=== PATIENT | female | born 1985 | race Caucasian/White ===

== ENCOUNTER 2017-11-14 11:43 | Outpatient (CLI) | payer OTHER | END 2017-11-14 11:44 | disposition home or self-care (01) | LOC: LAB.R 11:43 | PROVIDERS: ATTEND Physician Assistant Medical | DX: J02.9 Acute pharyngitis, unspecified (principal) | CPT/HCPCS: 87070 ==

== ENCOUNTER 2019-02-24 13:24 | Outpatient (CLI) | payer MEDICAID ==
[2019-02-24 16:55] VITALS: BP 141/98
--- NOTE | 2019-02-24 16:55 | SLEEP CARE CONSULTATION ---
Information from patient questionnaire entered by Cindi Quiñonez. I have reviewed and concur with the information entered by Cindi Quiñonez. This document represents the service I personally performed and the decisions made by me, Chelle Bazzi MD, [facility]. History of Present Illness Reason for Visit: New patient Chief Complaint: reports: Unrefreshed sleep, Snoring, Observed pauses in breathing, Fatigue Duration of Symptoms: 3 years Usual bedtime: 2300 Time it takes to fall asleep: 60 minutes Snores at night: Yes Observed to quit breathing while asleep: Yes Sleeps alone due to snoring: No Number of times waking at night: 4 Reasons for waking at night: reports: Gasping for air, Bathroom Toss, Turn, or Twitch while sleeping: Yes Recalls having dreams: Yes Usually gets out of bed at: 0700 Feels refreshed in the morning: No Morning headache: Yes Sleepy or fatigued during the day: Yes Ever fallen asleep while driving: No Takes day naps: Yes Dreams during day naps: Yes Prior sleep studies: Yes Year and Where: 2017 [facility] Additional HPI information: I had the pleasure of seeing Ms. Hussein today regarding the possibility of her having a sleep disorder. As you know, she is a 33 year old lady who complains of loud snore, observed apneas, frequent awakenings, unrefreshed sleep, and excessive daytime sleepiness. She had a sleep study in [place] in 2017 that showed obstructive sleep apnea-hypopnea. She moved away before treatment could be prescribed. Subjective Initial Prospect Sleepiness Scale score: 15 Past Medical History Past Medical History: reports: Hypertension, Insulin resistance, Anxiety, Asthma, Depression, Other (PCOS, PTSD, Gastroparesis) Social History The patient is not employed. Patient is Single and lives in [place]. Have you smoked in the past 12 months: No Alcohol use: Yes Alcohol amount and frequency: 1 glass once/week Caffeine use: Yes Caffeine amount and frequency: once/week Family History Family history of sleep disordered breathing: Yes Family Hx Sleep Apnea: Father: Snoring Allergies and Home Medications Drug allergies reviewed: Yes Home medication list reviewed: Yes Review of Systems Weight gain over past 5 years: 70 Weight loss over past 5 years: 30 Cardiovascular: reports: high blood pressure, irregular heart rate or pulse Gastrointestinal: reports: heartburn, nausea, vomitting, diarrhea, abdominal pain Urinary: reports: frequency Neurological: reports: headaches Psychiatric: reports: anxiety, depression, other (PTSD) Ear/Nose/Throat: reports: wisdom teeth removed Endocrine: reports: sluggishness, excessive thirst Musculoskeletal: reports: back pain Immunologic: denies: sneezing, rash, itching, allergies to food or environment, other Physical Exam Vital signs obtained and entered by: Dr. Bazzi Blood Pressure: 141/98 Cuff size: regular Heart Rate: 112 O2 Saturation: 97 Height: 5 ft 2 in Weight: 226 lb Body Mass Index: 41.3 BMI Classification: Obesity Class 3 Neck circumference: 16.6 Mood/affect: normal HEENT: No craniofacial malformation Nostrils: patent to airflow Turbinates: normal Septum: midline Mouth and throat: narrow oropharynx Soft palate: long Hard palate: normal Uvula: normal Uvula visualization: 25% Mallampati Class III Tongue: normal in size Tonsils: small Chin and jaw: normal size and position Neck: normal w/o lymphadenopathy or thyromegaly Heart: regular rate and rhythm Lungs: clear bilaterally Abdomen: soft, non-tender Extremities: no edema or clubbing Neurologic: intact, no focal deficits Impression and Plan IMPRESSION: 1. Obstructive Sleep Apnea-Hypopnea Syndrome, as previously diagnosed. She appears to be symptomatic for loud and irregular snoring, frequent awakenings during the night, nocturnal choking, unrefreshed sleep, cognitive impairment, and daytime hypersomnolence. Narrow oropharynx and obesity are common predisposing factors for obstructive sleep apnea-hypopnea syndrome. Untreated o bstructive sleep apnea can also cause hypertension. Pathophysiology of sleep- disordered breathing was discussed. I recommend proceeding to polysomnography to confirm the diagnosis and to assess severity. However, because her insurance being [facility], a home sleep apnea test (HSAT) will be ordered (the insurance does not generally authorize an in-laboratory polysomnography). Plan: 1. Schedule a home sleep apnea test (HSAT) 2. Avoid long distance driving or when feeling sleepy. 3. Avoid alcohol, sedative and muscle relaxant around bedtime. 4. Attempt to lose weight. 5. Return for a follow up after the test. I spent 100% of this 20 minute visit face to face with the patient with greater than 50% of this was spent time counseling the patient and coordination of care.
== END 2019-02-24 13:25 | disposition home or self-care (01) ==
LOC: SC 13:24
PROVIDERS: ATTEND Internal Medicine Pulmonary Disease
DX: G47.33 Obstructive sleep apnea (adult) (pediatric) (principal)
CPT/HCPCS: 99203; 99212

== ENCOUNTER 2019-02-27 17:12 | Emergency (ER) | payer MEDICAID ==
[2019-02-27 19:48] LABS: BASOPHILS # (AUTO) 0.1 10^3/uL (0.0-0.1); BASOPHILS % (AUTO) 0.6 %; EOSINOPHILS # (AUTO) 0.1 10^3/uL (0.0-0.7); EOSINOPHILS % (AUTO) 0.6 %; HGB - HEMOGLOBIN 14.9 g/dL (12.0-16.0); LYMPHOCYTES # (AUTO) 3.5 10^3/uL (1.5-3.5); LYMPHOCYTES % (AUTO) 22.3 %; MEAN CORPUSCULAR HEMOGLOBIN 28.9 pg (27.0-31.0); MEAN CORPUSCULAR VOLUME 87.6 fL (81.0-99.0); MONOCYTES # (AUTO) 0.6 10^3/uL (0.0-1.0); NEUTROPHILS # (AUTO) 11.2 10^3/uL (1.5-6.6); NEUTROPHILS % (AUTO) 71.9 %; PLT - PLATELET COUNT 435 10^3/uL (130-450); RED BLOOD COUNT 5.15 10^6/uL (4.20-5.40); RED CELL DISTRIBUTION WIDTH 12.1 % (12.0-15.0); WHITE BLOOD COUNT 15.5 x10^3/uL (4.8-10.8)
[2019-02-27 19:59] LABS: ALBUMIN 4.9 g/dL (3.2-5.5); ALBUMIN/GLOBULIN RATIO 1.2 (1.0-2.2); BILIRUBIN,TOTAL 1.2 mg/dL (0.2-1.0); CALCIUM 9.6 mg/dL (8.5-10.3); CREATININE 0.8 mg/dL (0.4-1.0); TOTAL PROTEIN 8.9 g/dL (6.7-8.2)
--- NOTE | 2019-02-27 20:39 | ED Physician Documentation ---
PD HPI NVD - Stated complaint Stated Complaint: NAUSEA - Chief complaint Chief Complaint: Abd Pain - History obtained from History obtained from: Patient - History of Present Illness Timing - onset: How many days ago (3) Timing - details: Gradual onset, Waxing and waning Pain level now: 8 Associated symptoms: Abdominal pain (across upper abdomen). No: Fever Improved by: Other (no ameliorating factors) Worsened by: Eating Similar symptoms before: Diagnosis (gastroparesis, although she says she has not had to go to an ED in the past for these symptoms) Recently seen: Not recently seen - Additonal information Additional information: c/o gradually worsening nausea x 3 days with vomiting and not tolerating PO intake. Today has been unable to tolerate sips of water, medications. She says these symptoms are similar to previous episodes attributed to gastroparesis, although these are more persistent and severe than usual; she has not had to go to an ED in the past for the symptoms. She took zofran at home without adequate relief, and was recently prescribed reglan (5mg PO QHS), but unable to take this last few days, as she was told to take it with meals and she hasn't been mali erating adequate PO Review of Systems Constitutional: denies: Fever, Chills, Sweats Cardiac: reports: Reviewed and negative Respiratory: reports: Reviewed and negative GI: reports: Abdominal Pain, Nausea, Vomiting, Diarrhea. 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 HEENT: None Psych: Depression, Anxiety Musculoskeletal: None Derm: None Other Past Medical History: gastoperisis, PCOS - Past Surgical History Past Surgical History: Yes General: Cholecystectomy - Present Medications Home Medications: Ambulatory Orders Medication Instructions Recorded Confirmed Metoclopramide [Reglan] 10 mg PO Q6H PRN #20 tablet 02/27/19 - Allergies Allergies/Adverse Reactions: Allergies Allergy/AdvReac Type Severity Reaction Status Date / Time No Known Drug Allergies Allergy Verified 02/27/19 17:36 - Social History Does the pt smoke?: No Smoking Status: Never smoker Does the pt drink ETOH?: No Does the pt have substance abuse?: No - Immunizations Immunizations are current?: Yes - POLST Patient has POLST: No PD ED PE NORMAL - Vitals Vital signs reviewed: Yes - General General: Alert and oriented X 3, No acute distress, Well developed/nourished - HEENT HEENT: Other (tacky/pasty mucous membranes) - Neck Neck: Supple, no meningeal sign - Cardiac Cardiac: No murmur - Respiratory Respiratory: No respiratory distress, Clear bilaterally - Abdomen Abdomen: Soft, Non distended, Other (mild tenderness across upper abdomen, worst in epigastrium, without rebound or guarding) - Back Back: No CVA TTP - Derm Derm: Normal color, Warm and dry - Extremities Extremities: No edema PD ED PE EXPANDED - Cardiac Cardiac: Tachy, Regular Rhythm Results - Vitals Vitals: Vital Signs - 24 hr 02/27/19 02/27/19 02/27/19 17:36 20:38 22:11 Temperature 37.1 C Heart Rate 118 H 118 H 91 Respiratory 18 18 16 Rate Blood Pressure 140/98 H 134/97 H 137/87 H O2 Saturation 97 96 98 02/27/19 23:33 Temperature 36.4 C L Heart Rate 80 Respiratory 18 Rate Blood Pressure 140/84 H O2 Saturation 98 Oxygen O2 Source Room air - Labs Labs: Laboratory Tests 02/27/19 02/27/19 02/27/19 19:35 19:35 19:35 WBC 15.5 H RBC 5.15 Hgb 14.9 Hct 45.1 MCV 87.6 MCH 28.9 MCHC 33.0 RDW 12.1 Plt Count 435 MPV 9.0 Neut # (Auto) 11.2 H Lymph # (Auto) 3.5 Brule # (Auto) 0.6 Eos # (Auto) 0.1 Baso # (Auto) 0.1 Absolute Nucleated RBC 0.00 Nucleated RBC % 0.0 Sodium 140 Potassium 3.8 Chloride 101 Carbon Dioxide 24 Anion Gap 15.0 H BUN 8 Creatinine 0.8 Estimated GFR (MDRD) 84 L Glucose 81 Calcium 9.6 Total Bilirubin 1.2 H AST 94 H ALT 143 H Alkaline Phosphatase 92 Total Protein 8.9 H Albumin 4.9 Globulin 4.0 Albumin/Globulin Ratio 1.2 Lipase 33 Serum HCG, Qual NEGATIVE PD MEDICAL DECISION MAKING - ED course Complexity details: reviewed results, re-evaluated patient, considered differential, d/w patient ED course: patient reported improvement after 2 liters NS IV , 10mg Reglan IV, and 8mg Zofran IV. She was able to tolerate PO (ice chips followed by water), and is comfortable with d/c home, return if worse. Departure - Departure Disposition: , Self Care Clinical Impression: Nausea & vomiting Condition: Good Instructions: ED Nausea Vomiting, ED Vomiting Diarrhea Nonspecific Ad Follow-Up: Judith Navarro PA-C [Primary Care Provider] - Prescriptions: Metoclopramide [Reglan] 10 mg PO Q6H PRN #20 tablet PRN Reason: Nausea / Vomiting Discharge Date/Time: 02/27/19 23:38
[2019-02-27] MEDS ORDERED: SODIUM CHLORIDE 0.9% 1,000 ML IV STA ×2 (20:51→21:51)
[2019-02-27] MEDS ORDERED: METOCLOPRAMIDE 10 MG/2 ML VIAL IVP STA (20:52)
[2019-02-27 21:16] LABS: HCG,QUALITATIVE BLOOD NEGATIVE
[2019-02-27] MEDS ORDERED: ONDANSETRON 4 MG/2 ML VIAL IVP STA (21:51)
[2019-02-27 23:35] VITALS: BP 140/84
== END 2019-02-27 23:38 | disposition home or self-care (01) ==
LOC: ED 17:12
DX: R11.2 Nausea with vomiting, unspecified (principal)
CPT/HCPCS: 36415; 80053; 83690; 84703; 85025; 96361; 96374; 96375; 99284; J2765; 81001; 81003; 81025; 87086

== ENCOUNTER 2019-03-04 19:30 | Outpatient (CLI) | payer MEDICAID | END 2019-03-04 23:59 | disposition home or self-care (01) | LOC: SC 19:30 | PROVIDERS: ATTEND Internal Medicine Pulmonary Disease | DX: G47.33 Obstructive sleep apnea (adult) (pediatric) (principal) | CPT/HCPCS: 95806 ==

== ENCOUNTER 2019-03-07 10:48 | Outpatient (CLI) | payer MEDICAID ==
[2019-03-07 17:52] LABS: BASOPHILS # (AUTO) 0.1 10^3/uL (0.0-0.1); BASOPHILS % (AUTO) 1.1 %; EOSINOPHILS # (AUTO) 0.2 10^3/uL (0.0-0.7); EOSINOPHILS % (AUTO) 2.2 %; HGB - HEMOGLOBIN 13.5 g/dL (12.0-16.0); LYMPHOCYTES # (AUTO) 3.1 10^3/uL (1.5-3.5); LYMPHOCYTES % (AUTO) 37.3 %; MEAN CORPUSCULAR HEMOGLOBIN 27.9 pg (27.0-31.0); MEAN CORPUSCULAR HGB CONC 31.4 g/dL (32.0-36.0); MEAN CORPUSCULAR VOLUME 88.8 fL (81.0-99.0); MEAN PLATELET VOLUME 9.5 fL (7.9-10.8); MONOCYTES # (AUTO) 0.4 10^3/uL (0.0-1.0); MONOCYTES % (AUTO) 4.8 %; NEUTROPHILS # (AUTO) 4.5 10^3/uL (1.5-6.6); NEUTROPHILS % (AUTO) 54.1 %; PLT - PLATELET COUNT 396 10^3/uL (130-450); RED BLOOD COUNT 4.84 10^6/uL (4.20-5.40); RED CELL DISTRIBUTION WIDTH 12.6 % (12.0-15.0); WHITE BLOOD COUNT 8.3 x10^3/uL (4.8-10.8)
[2019-03-07 18:20] LABS: ALBUMIN 3.9 g/dL (3.2-5.5); ALBUMIN/GLOBULIN RATIO 1.1 (1.0-2.2); BILIRUBIN,TOTAL 0.8 mg/dL (0.2-1.0); CREATININE 0.8 mg/dL (0.4-1.0); TOTAL PROTEIN 7.4 g/dL (6.7-8.2)
== END 2019-03-07 10:49 | disposition home or self-care (01) ==
LOC: LAB.S 10:48
PROVIDERS: ATTEND Physician Assistant
DX: K31.84 Gastroparesis (principal)
CPT/HCPCS: 36415; 80053; 84443; 85025

== ENCOUNTER 2019-03-11 13:23 | Emergency (ER) | payer MEDICAID ==
[2019-03-11] MEDS ORDERED: SODIUM CHLORIDE 0.9% 1,000 ML IV ONE (14:43)
[2019-03-11] MEDS ORDERED: HALOPERIDOL 5 MG/ML VIAL IVP ONE ×2 (14:44→14:46)
[2019-03-11 14:52] LABS: BASOPHILS # (AUTO) 0.1 10^3/uL (0.0-0.1); BASOPHILS % (AUTO) 0.6 %; EOSINOPHILS # (AUTO) 0.2 10^3/uL (0.0-0.7); EOSINOPHILS % (AUTO) 1.1 %; HGB - HEMOGLOBIN 15.2 g/dL (12.0-16.0); LYMPHOCYTES # (AUTO) 3.3 10^3/uL (1.5-3.5); LYMPHOCYTES % (AUTO) 23.9 %; MEAN CORPUSCULAR HEMOGLOBIN 28.3 pg (27.0-31.0); MEAN CORPUSCULAR HGB CONC 32.2 g/dL (32.0-36.0); MEAN CORPUSCULAR VOLUME 87.7 fL (81.0-99.0); MEAN PLATELET VOLUME 8.6 fL (7.9-10.8); MONOCYTES # (AUTO) 0.7 10^3/uL (0.0-1.0); MONOCYTES % (AUTO) 5.3 %; NEUTROPHILS # (AUTO) 9.3 10^3/uL (1.5-6.6); NEUTROPHILS % (AUTO) 68.6 %; PLT - PLATELET COUNT 413 10^3/uL (130-450); RED BLOOD COUNT 5.38 10^6/uL (4.20-5.40); RED CELL DISTRIBUTION WIDTH 12.1 % (12.0-15.0); WHITE BLOOD COUNT 13.6 x10^3/uL (4.8-10.8)
[2019-03-11 15:14] LABS: ALBUMIN 4.7 g/dL (3.2-5.5); ALBUMIN/GLOBULIN RATIO 1.1 (1.0-2.2); BILIRUBIN,TOTAL 1.3 mg/dL (0.2-1.0); CALCIUM 9.6 mg/dL (8.5-10.3); MAGNESIUM 2.3 mg/dL (1.7-2.8); TOTAL PROTEIN 8.9 g/dL (6.7-8.2)
[2019-03-11] MEDS ORDERED: GI COCKTAIL 120 ML BOTTLE PO SCH (16:00)
[2019-03-11] MEDS ORDERED: MAG HYDROX/AL HYDROX/SIMETH 30 ML UDC PO STA (16:05)
[2019-03-11] MEDS ORDERED: LIDOCAINE VISCOUS 2% 15 ML UDC MM STA (16:06)
[2019-03-11 16:34] LABS: HCG UR QUAL NEGATIVE
--- NOTE | 2019-03-11 16:59 | ED Physician Documentation ---
PD HPI NVD - Stated complaint Stated Complaint: VOMITING - Chief complaint Chief Complaint: Abd Pain - History obtained from History obtained from: Patient, Family - History of Present Illness Timing - onset: Chronic (worse for the past 2 weeks) Timing - duration: Other (years but worse for 2 weeks) Timing - details: Gradual onset Severity Comments: moderate nausea, vomiting and diarrhea which is loose, watery nonbloody Associated symptoms: Abdominal pain. No: Fever, Chest pain, Hematemesis, Melena , Hematochezia, Dizzy, Near syncope / syncope, Loss of appetite, Weight loss, Dysuria, Hematuria Contributing factors: Other (hx of gastroparesis). No: Sick contact Improved by: Other (nothing, not getting better with her regular zofran and reglan) Worsened by: Eating Similar symptoms before: Diagnosis (hx of gastroparesis due to IDDM) Recently seen: Clinic (was seen in GI clinic 1 week ago and her doctor told her to continue her reglan) - Treatment prior to arrival Treatment prior to arrival: reglan and zofran - Additonal information Additional information: States this feels like her regular gastroparesis but a little worse Review of Systems Ten Systems: 10 systems reviewed and negative Constitutional: denies: Fever Nose: reports: Reviewed and negative Throat: reports: Reviewed and negative Cardiac: reports: Reviewed and negative Respiratory: reports: Reviewed and negative GI: reports: Abdominal Pain, Nausea, Vomiting, Diarrhea. 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 HEENT: None Psych: Depression, Anxiety Musculoskeletal: None Derm: None Other Past Medical History: gastroparesis - Past Surgical History Past Surgical History: Yes General: Cholecystectomy - Present Medications Home Medications: Ambulatory Orders Medication Instructions Recorded Confirmed Metoclopramide [Reglan] 10 mg PO Q6H PRN #20 tablet 02/27/19 Promethazine Supp [Phenergan Supp] 25 mg AR Q6HR PRN #20 supp 03/11/19 - Allergies Allergies/Adverse Reactions: Allergies Allergy/AdvReac Type Severity Reaction Status Date / Time No Known Drug Allergies Allergy Verified 03/11/19 13:45 - Social History Does the pt smoke?: No Smoking Status: Never smoker Does the pt drink ETOH?: No Does the pt have substance abuse?: No - Immunizations Immunizations are current?: Yes - POLST Patient has POLST: No PD ED PE NORMAL - Vitals Vital signs reviewed: Yes - General General: Alert and oriented X 3, No acute distress, Well developed/nourished - HEENT HEENT: Atraumatic, Moist mucous membranes - Neck Neck: Supple, no meningeal sign - Cardiac Cardiac: RRR, No murmur, No gallop, No rub - Respiratory Respiratory: No respiratory distress, Clear bilaterally - Abdomen Abdomen: Soft, Non distended, Other (mild epigastric tenderness, no guarding or rebound, no RLQ tenderness, no RUQ tenderness) - Female Female : Deferred - Rectal Rectal: Deferred - Derm Derm: Normal color, Warm and dry, No rash - Extremities Extremities: No deformity - Neuro Neuro: Alert and oriented X 3 Eye Opening: Spontaneous Motor: Obeys Commands Verbal: Oriented GCS Score: 15 - Psych Psych: Normal mood, Normal affect Results - Vitals Vitals: Vital Signs - 24 hr 03/11/19 03/11/19 03/11/19 13:45 14:33 14:54 Temperature 37.0 C Heart Rate 121 H 129 H 116 H Respiratory 16 18 18 Rate Blood Pressure 136/96 H 139/102 H O2 Saturation 98 96 94 03/11/19 03/11/19 15:47 17:21 Temperature 36.8 C Heart Rate 94 97 Respiratory 18 14 Rate Blood Pressure 116/77 131/80 H O2 Saturation 93 99 Oxygen O2 Source Room air - Labs Labs: Laboratory Tests 03/11/19 03/11/19 03/11/19 14:43 14:43 16:18 WBC 13.6 H RBC 5.38 Hgb 15.2 Hct 47.2 H MCV 87.7 MCH 28.3 MCHC 32.2 RDW 12.1 Plt Count 413 MPV 8.6 Neut # (Auto) 9.3 H Lymph # (Auto) 3.3 Alpine # (Auto) 0.7 Eos # (Auto) 0.2 Baso # (Auto) 0.1 Absolute Nucleated RBC 0.00 Nucleated RBC % 0.0 Sodium 137 Potassium 4.1 Chloride 101 Carbon Dioxide 24 Anion Gap 12.0 BUN 11 Creatinine 1.0 Estimated GFR (MDRD) 65 L Glucose 86 Calcium 9.6 Magnesium 2.3 Total Bilirubin 1.3 H AST 44 H ALT 56 Alkaline Phosphatase 77 Total Protein 8.9 H Albumin 4.7 Globulin 4.3 H Albumin/Globulin Ratio 1.1 Lipase 32 Ur Specific Sterling >=1.030 H Urine HCG, Qual NEGATIVE neg , mildly elevated bilirubin, neg lipase and otherwise normal lfts. mildly elevated wbc. PD MEDICAL DECISION MAKING - ED course Complexity details: reviewed old records, reviewed results, re-evaluated patient, considered differential, d/w patient, d/w family ED course: ddx- gastroparesis, colitis, gastroenteritis, pancreatitis, hepatitis, choledocholithiasis, appendicitis, gastritis, PUD. 33 y/o F with hx of gastroparesis here for upper abdominal pain with nausea, vomiting and diarrhea that she states is similar to prior episdoes of gastroparesis. She has some mild epigastric tenderness iwth a mildly elevated wbc, no fever. She has had a prior cholecystectomy thus doubt biliary disease, her labs are not c/w hepatitis or pancreatitis. She may have colitis or gastritis She is overall well appearing, she was given haldol for nausea and vomiting with improvement and now is able to tolerate fluids. She was given a GI cocktail which improved her upper abdominal discomfort. After a liter of fluids her vitals improved, she is less tachycardic. She feels well to go home. Will give AR phenergan in case she cannot tolerate PO meds which she reports has been the issue for her at home this week. But given she is not significantly dehydrated, no Yessica I think this is reasonable. Daiana Oliveira MD Departure - Departure Disposition: Home, Self Care Clinical Impression: Gastroparesis, Nausea vomiting and diarrhea Condition: Stable Record reviewed to determine appropriate education?: Yes Instructions: Gastroparesis Follow-Up: Judith Navarro PA-C [Primary Care Provider] - Within 1 week Prescriptions: Promethazine Supp [Phenergan Supp] 25 mg AR Q6HR PRN #20 supp PRN Reason: Nausea / Vomiting Comments: Your lab results today were normal except for a mildly elevated white blood cell count. You should continue your nausea medicine and can take rectal phenergan if nausea is severe. You can also take Maalox OTC for abdominal pain. Return to the ED if worsening symptoms or fever develop. Discharge Date/Time: 03/11/19 17:57
[2019-03-11 17:21] VITALS: BP 131/80
== END 2019-03-11 17:57 | disposition home or self-care (01) ==
LOC: ED 13:23
DX: E11.43 Type 2 diabetes mellitus with diabetic autonomic (poly)neuropathy (principal); K31.84 Gastroparesis; Z79.4 Long term (current) use of insulin; R11.2 Nausea with vomiting, unspecified; R19.7 Diarrhea, unspecified; R00.0 Tachycardia, unspecified; Z90.49 Acquired absence of other specified parts of digestive tract; I10 Essential (primary) hypertension
CPT/HCPCS: 36415; 80053; 81025; 83690; 83735; 85025; 96360; 99283; 99284; A9270

== ENCOUNTER 2019-03-25 11:17 | Outpatient (CLI) | payer MEDICAID ==
[2019-03-25 12:25] VITALS: BP 110/72
--- NOTE | 2019-03-25 12:25 | SLEEP CARE CONSULTATION ---
Information from patient questionnaire entered by Cindi Quiñonez. I have reviewed and concur with the information entered by Cindi Quiñonez. This document represents the service I personally performed and the decisions made by me, Shirley Maldonado RN, MSN, [employer]. History of Present Illness Initial Elizabeth Sleepiness Scale score: 15 Current Elizabeth Sleepiness Scale score: 13 Additional HPI information: PAM DAVIS returns for follow up of the recently performed polysomnography and informed of findings. I explained the pathophysiology behind obstructive sleep apnea. We then spent quite a bit of time discussing different treatment options. For mild obstructive sleep apnea, surgery and oral appliance are alternatives to nasal CPAP therapy but in moderate or severe cases, nasal CPAP is the most effective and reliable treatment. I reviewed the impact of weight ch anges on sleep apnea and strongly recommended losing weight. After some discussion, the patient opted to go with the nasal CPAP therapy. Nasal autoCPAP set at [id number] will be ordered with rationale explained. A manual titration study will be ordered if unable to find optimal pressure with office adjustments. I explained how CPAP machine works with sample devices [employer] and [id number] and what to expect when using the machine. Using CPAP every night in order to get used to it was emphasized. Patient advised to put CPAP mask on before getting into bed so as not to fall asleep without CPAP. To assist acclimation to CPAP use, it could also be used for a short time during day while reading or watching TV. The patient was instructed to call the CPAP supplier to discuss any mechanical problem that may occur. If the mask given is uncomfortable or is difficult to keep on through the night even with adjustment, contact the CPAP supplier as many will replace with another mask style if notified before 30 days. If snoring or perceives is not getting enough air or too much air from the machine, notify this office. [facility] patient education PAP tips reviewed and given to patient. Patient counseled not drink alcohol less than 4 hours before bedtime as it can increase snoring and apnea. Patient does not drink alcohol. Patient was cautioned about risks of drowsy driving until sleepiness symptoms resolve. Patient denies drowsy driving. [facility]AS patient education on snoring and sleep apnea given and reviewed. Sleep Study - Polysomnography Polysomnography findings: Home sleep study results: SLEEP TIME AND EFFICIENCY: The sleep study recording began at 02:25:01 AM and ended at 10:17:14 AM. Total recording time was 472.2 minutes. The total sleep time was 445.0 minutes. The sleep efficiency was 94.2 percent. The patient spent 0.0 minutes supine, and spent 445.0 minutes non-supine. The patients own estimate of sleep time was 8.00 hours. RESPIRATORY DATA: The AHI in this report is indexed to sleep time based on actigraphy. The AASM defines this as IBIS. The AHI on this type 3 Home Sleep Study may understate the AHI determined on a type 1 or 2 study, since EEG is not monitored resulting in the inability to score non-desaturating hypopneas. Based on 4% Calculation: The AHI4% calculation of 26.0 per hour of recording time was based on a total of 153 scored apneas and 40 scored hypopneas with 4% desaturations. Supine AHI4%: 0.0 per hour. Non-supine AHI4%: 25.9 per hour. Oxygen Summary: Patient's baseline O2 saturation was 97.1 %. The patient spent 4.7 minutes at an oxygen saturation less than 90%, and 0.9 minutes less than 85%. The desaturation index was 20.9 events per hour sleep time. The lowest saturation was 80.3 %. SNORING: The percent of the study time spent snoring was 1.9 %. The Snoring Count was 291 . The Snoring Index was Patient Name: Pam Davis Study Date: 03/04/2019 : 1985 Page 2 of 7 39.2 . PULSE RATE REVIEW: The mean heart rate was 63 beats per minute. The rate ranged from a low of 45 to a high of 91 beats per minute. DIAGNOSIS CODE: Moderate obstructive sleep apnea G47.33 Mild desaturations were noted. Allergies and Home Medications Known drug allergies: No Home medication list reviewed: Yes (see list - takes daily / doses not known ) Allergy and home medication list: proclorperazine metformin bupropion albuterol ondansetron omepraxole control metoclopramide metoprolol Review of Systems Review of systems same as previous: Yes Physical Exam Blood Pressure: 110/72 Cuff size: long Heart Rate: 78 O2 Saturation: 98 Height: 5 ft 2 in Weight: 219 lb Body Mass Index: 40.0 BMI Classification: Obesity Class 3 Impression and Plan 1. Obstructive Sleep Apnea-Hypopnea Syndrome, moderate, with lowest oxygen saturation of 80.3%.Obviously this is the cause of the patients symptoms of unrefreshed sleep, and excessive daytime sleepiness. Positive pressure therapy could benefit her hypertension, insulin resistence, anxiety / depression and PTSD. As mentioned above, the patient will be started on nasal autoCPAP therapy with pressure set at 4-15 cmH2O. A manual titration study will be completed if unable to find optimal treatment pressure with office adjustments. Compliance guidelines also reviewed. A copy of compliance guidelines will be given for reference at check out. * Nasal auto CPAP therapy, pressure at 4-15 cm H2O. * Attempt to lose weight. * Avoid alcohol consumption near bedtime. * The patient is again cautioned about driving until sleepiness completely resolves. * Return one month after CPAP obtained. I will assess response to therapy and compliance at that time. I spent 100% of this 30 minute visit face to face with the patient with greater than 50% of this was spent time counseling the patient and coordination of care.
== END 2019-03-25 11:18 | disposition home or self-care (01) ==
LOC: SC 11:17
PROVIDERS: ATTEND Nurse Practitioner Family
DX: G47.33 Obstructive sleep apnea (adult) (pediatric) (principal)
CPT/HCPCS: 99212; 99214

== ENCOUNTER 2019-05-01 09:18 | Outpatient (CLI) | payer MEDICAID ==
[2019-05-01] MEDS ORDERED: BARIUM SULFATE 148 GM POWDER PO ONE (12:20)
[2019-05-01] MEDS ORDERED: SIMETHICONE/SOD BICARB/CIT AC 1 EACH PACKET PO ONE (12:20)
[2019-05-01] MEDS ORDERED: BARIUM SULFATE 700 MG TABLET PO ONE (12:20)
[2019-05-01] MEDS ORDERED: BARIUM SULFATE 176 GM BOTTLE PO ONE (12:20)
--- NOTE | 2019-05-01 12:26 | XRAY Report ---
Reason: JASVIR OAIN,NAUSEA/VOMITING,GASTROPARESIS Procedure Date: 05/01/2019 Accession Number: [id number] / [id number] Procedure: FL - UGI W/Air CPT Code: Final Report FULL RESULT: EXAM: UPPER GI SERIES EXAM DATE: 05/01/2019 12:18 PM. CLINICAL HISTORY: Abdominal pain, nausea/vomiting, gastroparesis. COMPARISONS: None. TECHNIQUE: Routine double contrast upper gastrointestinal technique. Fluoroscopy Time: 2 minutes 37 seconds. Number of fluoroscopy images: 35. FINDINGS: Swallowing Mechanism: Normal oral phase and swallowing reflex. No episodes of tracheal penetration or aspiration evident. Esophageal Motility: Normal peristaltic stripping wave. Esophageal Mucosa: Normal. No ulcerations or masses. Gastroesophageal Junction: Normal. No hernia or significant reflux demonstrated with or without Valsalva maneuvers. Stomach: Normal gastric mucosal pattern. No ulcers identified. Duodenum: Normal duodenal mucosal pattern. No ulcers or diverticula identified. Other: Mild delay in progression of contrast from stomach to duodenum, compatible with provided history of gastroparesis. IMPRESSION: Mild delay of progression of contrast from stomach to proximal small bowel. No reflux or hernia or other significant anatomic abnormality detected. [facility]
== END 2019-05-01 09:19 | disposition home or self-care (01) ==
LOC: DI 09:18
PROVIDERS: ATTEND Physician Assistant
DX: R10.9 Unspecified abdominal pain (principal); R11.2 Nausea with vomiting, unspecified; K31.84 Gastroparesis
CPT/HCPCS: 74246; A9270

== ENCOUNTER 2019-08-26 15:46 | Outpatient (CLI) | payer MEDICAID ==
--- NOTE | 2019-08-26 13:28 | SLEEP CARE CONSULTATION ---
Information from patient questionnaire entered by Cindi Quiñonez. I have reviewed and concur with the information entered by Cindi Quiñonez. This document represents the service I personally performed and the decisions made by me, Chelle Bazzi MD, [facility]. History of Present Illness Service Date and Time: 08/26/2019 1320 Previous diagnosis: Moderate, Obstructive Sleep Apnea-Hypopnea Syndrome AHI: 26.0 Reason for follow up: first compliance Equipment type: CPAP Equipment obtained from: [facility] HPI additional information: To minimize the risk of COVID-19 exposure, the patient has requested and consented to this video telemedicine visit. The patient also agrees to having her insurance billed. HPI: Ms. Hussein was called today to follow up on the nasal CPAP therapy. She was diagnosed to have moderate obstructive sleep apnea-hypopnea syndrome. The patient wears with a nasal mask. She reports using the device nightly and all through the night. The compliance data show usage in 30 out of the past 30 nights, averaging 9.1 hours a night. The > 4 hour compliance rate for the past 30 days is 100%. She complained of no particular problem with the device such as soreness on the face, dry nose, epistaxis, nasal congestion or headache. She thinks that the pressure 4 15 cmH2O is occasionally too low at the beginning of the night. On the CPAP therapy she notices improvement in her sleep quality, and that she wakes up feeling fresher in the morning and more awake/alert during the day. The [place] Sleepiness Scale score 15. The average residual AHI is 1.1; and average time in large leak per day is 28 seconds. The 90th percentile pressure is 14.1 cmH2O. CPAP Compliance Data - Data Reviewed with Patient Average duration of nightly device use: 9H 4M Compliance rate %: 100 Current pressure setting (cmH2O): 4-15 Humidity settin Heated hose settin Average residual AHI: 1.1 Average large leak: 28S Subjective Initial [place] Sleepiness Scale score: 15 Allergies and Home Medications Drug allergies reviewed: Yes Home medication list reviewed: Yes Review of Systems Review of systems same as previous: Yes Physical Exam Height: 5 ft 2 in Impression and Plan IMPRESSION: 1. Obstructive Sleep Apnea-Hypopnea Syndrome, moderate (AHI was 26.0 by a home sleep apnea test), with the patient doing well on nasal CPAP therapy. She has excellent compliance and significant clinical improvement. The current pressure appears effective but not too comfortable. Her mask fits well. Overall, she is very satisfied with treatment and plans to continue with it long-term. No adjustment is necessary today. PLAN: 1. Set autoCPAP to 8 - 15 cmH2O with ramp set at 6 cmH2O and 10 minutes (done via the modem). 2. Try to lose weight 3. Try other masks and nasal pillows. 4. Return in one year for follow up or earlier if there is any problem with the treatment. Visit Type: Telehealth Video Video Type: Audemat Patient Location: Home Location of Provider: Home Patient agrees and consents to this telehealth visit type: Yes Patient agrees to have their insurance billed: Yes Time Spent with Patient (minutes): 15 Provider Statement: I spent 100% of the Telehealth Video Call with the patient with greater than 50% spent counseling the patient and coordination of care.
== END 2019-08-26 15:47 | disposition home or self-care (01) ==
LOC: SC 15:46
PROVIDERS: ATTEND Internal Medicine Pulmonary Disease
DX: G47.33 Obstructive sleep apnea (adult) (pediatric) (principal)

== ENCOUNTER 2019-11-15 18:25 | Emergency (ER) | payer MEDICAID ==
[2019-11-15] MEDS ORDERED: SODIUM CHLORIDE 0.9% 1,000 ML IV STA (18:36)
[2019-11-15] MEDS ORDERED: ONDANSETRON 4 MG/2 ML VIAL IVP STA (18:46)
--- NOTE | 2019-11-15 18:47 | ED Physician Documentation ---
PD HPI ABD PAIN - Stated complaint Stated Complaint: N/V - Chief complaint Chief Complaint: Abd Pain - History obtained from History obtained from: Patient - Additional information Additional information: 33-year-old woman with history of gastroparesis diagnosed by gastric emptying study although has never had an upper endoscopy. It is unclear why she has gastroparesis, she is not diabetic, she is insulin resistant. She takes multiple medications but does not have a med list with her so we do not know what they are. For the last week her vomiting has been worse than normal and has not been able to keep anything down for the last 3 days. No clear trigger. No fevers. No possibility of . She does not use marijuana frequently. 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 : None HEENT: None Psych: Depression, Anxiety Musculoskeletal: None Derm: None - Past Surgical History Past Surgical History: Yes General: Cholecystectomy - Present Medications Home Medications: Ambulatory Orders Medication Instructions Recorded Confirmed Metoclopramide [Reglan] 10 mg PO Q6H PRN #20 tablet 02/27/19 Promethazine Supp [Phenergan Supp] 25 mg MD Q6HR PRN #20 supp 03/11/19 Metoclopramide [Reglan] 10 mg PO Q6H PRN #20 tablet 11/15/19 Ondansetron Odt [Zofran] 4 mg TL Q6H PRN #10 tablet 11/15/19 Promethazine [Phenergan] 25 mg PO Q6H PRN #10 tab 11/15/19 - Allergies Allergies/Adverse Reactions: Allergies Allergy/AdvReac Type Severity Reaction Status Date / Time No Known Drug Allergies Allergy Verified 11/15/19 18:27 - Social History Does the pt smoke?: No Smoking Status: Never smoker Does the pt drink ETOH?: No Does the pt have substance abuse?: No - Immunizations Immunizations are current?: Yes - POLST Patient has POLST: No PD ED PE NORMAL - Vitals Vital signs reviewed: Yes - General General: Alert and oriented X 3, No acute distress - Abdomen Abdomen: Normal bowel sounds, Soft, Non tender - Neuro Neuro: Alert and oriented X 3, Normal speech Results - Vitals Vitals: Vital Signs - 24 hr 11/15/19 11/15/19 11/15/19 18:28 18:53 20:15 Heart Rate 126 H 105 H 97 Respiratory 18 16 18 Rate Blood Pressure 147/99 H 160/97 H 160/101 H O2 Saturation 96 99 98 11/15/19 21:41 Heart Rate 95 Respiratory 16 Rate Blood Pressure 135/89 H O2 Saturation 98 Oxygen O2 Source Room air - Labs Labs: Laboratory Tests 11/15/19 11/15/19 11/15/19 18:40 18:40 19:55 WBC 13.8 H RBC 5.40 Hgb 15.6 Hct 47.4 H MCV 87.8 MCH 28.9 MCHC 32.9 RDW 13.8 Plt Count 429 MPV 9.3 Neut # (Auto) 8.4 H Lymph # (Auto) 4.3 H [place] # (Auto) 0.6 Eos # (Auto) 0.2 Baso # (Auto) 0.1 Absolute Nucleated RBC 0.00 Nucleated RBC % 0.0 Sodium 137 Potassium 3.7 Chloride 103 Carbon Dioxide 20 L Anion Gap 14.0 H BUN 10 Creatinine 0.9 Estimated GFR (MDRD) 73 L Glucose 191 H Calcium 9.4 Total Bilirubin 1.4 H AST 68 H ALT 52 Alkaline Phosphatase 94 Total Protein 8.8 H Albumin 4.4 Globulin 4.4 H Albumin/Globulin Ratio 1.0 Lipase 29 Urine Color YELLOW Urine Clarity CLEAR Urine pH 7.0 Ur Specific [place] 1.025 Urine Protein 30 H Urine Glucose (UA) NEGATIVE Urine Ketones >=80 H Urine Occult Blood TRACE-INTA Urine Nitrite NEGATIVE Urine Bilirubin NEGATIVE Urine Urobilinogen 0.2 (NORMAL) Ur Leukocyte Esterase NEGATIVE Urine RBC 0-5 Urine WBC 0-3 Ur Squamous Epith Cells FEW Squamous Urine Bacteria Many H Urine Casts 0-2 Hyaline Casts Urine Mucus Few Strands Ur Microscopic Review INDICATED Urine Culture Comments INDICATED Urine HCG, Qual NEGATIVE Urine Opiates Screen NEGATIVE Ur Oxycodone Screen NEGATIVE Urine Methadone Screen NEGATIVE Ur Propoxyphene Screen NEGATIVE Ur Barbiturates Screen NEGATIVE Ur Tricyclics Screen NEGATIVE Ur Phencyclidine Scrn NEGATIVE Ur Amphetamine Screen NEGATIVE U Methamphetamines Scrn NEGATIVE U Benzodiazepines Scrn NEGATIVE Urine Cocaine Screen NEGATIVE U Cannabinoids Screen NEGATIVE PD MEDICAL DECISION MAKING - ED course ED course: 33-year-old woman with history of gastroparesis presents with an apparent exacerbation of same. Benign exam. Feeling better after stepwise antiemetics and IV fluids. Most helpful here was Haldol. Departure - Departure Disposition: 01 Home, Self Care Clinical Impression: Gastroparesis Nausea & vomiting Qualifiers: Vomiting type: unspecified Vomiting Intractability: non-intractable Qualified Code(s): R11.2 - Nausea with vomiting, unspecified Condition: Good Record reviewed to determine appropriate education?: Yes Instructions: ED Nausea Vomiting Prescriptions: Promethazine [Phenergan] 25 mg PO Q6H PRN #10 tab PRN Reason: Nausea / Vomiting Metoclopramide [Reglan] 10 mg PO Q6H PRN #20 tablet PRN Reason: nausea or headache Ondansetron Odt [Zofran] 4 mg TL Q6H PRN #10 tablet PRN Reason: Nausea / Vomiting Comments: Follow-up with your general manager food at [facility], next available appointment, for further evaluation and treatment. Return if worse. Do not drink or drive while taking promethazine. Do not take promethazine within 6 hours of taking metoclopramide.
[2019-11-15 18:49] LABS: BASOPHILS # (AUTO) 0.1 10^3/uL (0.0-0.1); BASOPHILS % (AUTO) 0.8 %; EOSINOPHILS # (AUTO) 0.2 10^3/uL (0.0-0.7); EOSINOPHILS % (AUTO) 1.2 %; HGB - HEMOGLOBIN 15.6 g/dL (12.0-16.0); LYMPHOCYTES # (AUTO) 4.3 10^3/uL (1.5-3.5); MEAN CORPUSCULAR HEMOGLOBIN 28.9 pg (27.0-31.0); MEAN CORPUSCULAR HGB CONC 32.9 g/dL (32.0-36.0); MEAN CORPUSCULAR VOLUME 87.8 fL (81.0-99.0); MEAN PLATELET VOLUME 9.3 fL (7.9-10.8); MONOCYTES # (AUTO) 0.6 10^3/uL (0.0-1.0); MONOCYTES % (AUTO) 4.4 %; NEUTROPHILS # (AUTO) 8.4 10^3/uL (1.5-6.6); NEUTROPHILS % (AUTO) 61.1 %; PLT - PLATELET COUNT 429 10^3/uL (130-450); RED CELL DISTRIBUTION WIDTH 13.8 % (12.0-15.0); WHITE BLOOD COUNT 13.8 x10^3/uL (4.8-10.8)
[2019-11-15 19:00] LABS: ALBUMIN 4.4 g/dL (3.2-5.5); BILIRUBIN,TOTAL 1.4 mg/dL (0.2-1.0); CALCIUM 9.4 mg/dL (8.5-10.3); CREATININE 0.9 mg/dL (0.4-1.0); TOTAL PROTEIN 8.8 g/dL (6.7-8.2)
[2019-11-15] MEDS ORDERED: METOCLOPRAMIDE 10 MG/2 ML VIAL IVP STA (19:33)
[2019-11-15 20:00] LABS: MUDS CUTOFF CONCENTRATIONS CUTOFF CONC BELOW:
[2019-11-15 20:04] LABS: GLUCOSE, URINE (UA) NEGATIVE (NEGATIVE); KETONES,URINE (UA) >=80 mg/dL (NEGATIVE); LEUKOCYTE ESTERASE, URINE NEGATIVE (NEGATIVE); NITRITE,URINE NEGATIVE (NEGATIVE); OCCULT BLOOD,URINE TRACE-INTA (NEGATIVE); PROTEIN,URINE 30 mg/dL (NEGATIVE); UROBILINOGEN,URINE 0.2 (NORMAL) E.U./dL (NORMAL)
[2019-11-15 20:15] LABS: BILIRUBIN,URINE NEGATIVE (NEGATIVE); CLARITY,URINE CLEAR (CLEAR); HCG UR QUAL NEGATIVE; ICTOTEST,URINE NEGATIVE
[2019-11-15 20:21] LABS: BACTERIA,URINE Many /HPF (None Seen); CASTS, URINE 0-2 Hyaline Casts /LPF; MUCUS,URINE Few Strands; RBC,URINE 0-5 /HPF (0-5); SQUAMOUS EPITHELIAL CELL,UR FEW Squamous (<= Few)
[2019-11-15 20:22] LABS: AMPHETAMINE SCREEN,URINE NEGATIVE (NEGATIVE); BENZODIAZEPINES SCREEN, URINE NEGATIVE (NEGATIVE); COCAINE SCREEN URINE NEGATIVE (NEGATIVE); METHADONE SCREEN, URINE NEGATIVE (NEGATIVE); METHAMPHETAMINES SCREEN, URINE NEGATIVE (NEGATIVE); OPIATE SCREEN, URINE NEGATIVE (NEGATIVE); OXYCODONE SCREEN, URINE NEGATIVE (NEGATIVE); PROPOXYPHENE SCREEN, URINE NEGATIVE (NEGATIVE); TRICYCLIC ANTIDEPRESSANT,URINE NEGATIVE (NEGATIVE)
[2019-11-15] MEDS ORDERED: HALOPERIDOL 5 MG/ML VIAL IVP ONE (20:27)
[2019-11-15 21:41] VITALS: BP 135/89
[2019-11-15] MEDS ORDERED: METOCLOPRAMIDE 10 MG TABLET PO STA (21:47)
== END 2019-11-15 22:05 | disposition home or self-care (01) ==
LOC: ED 18:25
DX: K31.84 Gastroparesis (principal); R11.2 Nausea with vomiting, unspecified; E88.81 Metabolic syndrome and other insulin resistance; I10 Essential (primary) hypertension
CPT/HCPCS: 36415; 80053; 80306; 81001; 81025; 83690; 85025; 87086; 96361; 96374; 96375; 99283; A9270; J2765; 81003

== ENCOUNTER 2020-01-06 17:57 | Emergency (ER) | payer MEDICAID ==
[2020-01-06 18:57] LABS: BILIRUBIN,URINE NEGATIVE (NEGATIVE); GLUCOSE, URINE (UA) >=1000 mg/dL (NEGATIVE); KETONES,URINE (UA) 40 mg/dL (NEGATIVE); LEUKOCYTE ESTERASE, URINE NEGATIVE (NEGATIVE); NITRITE,URINE NEGATIVE (NEGATIVE); OCCULT BLOOD,URINE NEGATIVE (NEGATIVE); PROTEIN,URINE NEGATIVE (NEGATIVE); UROBILINOGEN,URINE 0.2 (NORMAL) E.U./dL (NORMAL)
[2020-01-06 19:02] LABS: CLARITY,URINE CLEAR (CLEAR); HCG UR QUAL NEGATIVE
[2020-01-06] MEDS ORDERED: SODIUM CHLORIDE 0.9% 1,000 ML IV STA ×2 (20:07→20:14)
--- NOTE | 2020-01-06 20:13 | ED Physician Documentation ---
History of Present Illness - Stated complaint Stated Complaint: FREQUENT URINATION - Chief complaint Chief Complaint: General - Additonal information Additional information: 34-year-old female presents the emergency department for evaluation of urinary frequency, thirst. She reports that she is prediabetic and insulin resistant and takes 500 of metformin twice daily. She has followed up with her primary care doctor and they asked that she come to the ER for further evaluation of possible DKA. Patient reports that she has been nauseated but no vomiting. no fevers, dysuria, no chest pain, dyspnea. She does have a history of gastroparesis as well as PCOS. Review of Systems Constitutional: reports: Fatigue, Other. denies: Fever, Chills, Myalgias Eyes: denies: Loss of vision, Decreased vision Ears: denies: Loss of hearing, Drainage/discharge Nose: denies: Rhinorrhea / runny nose, Congestion, Epistaxis Throat: denies: Dental pain / toothache, Oral lesions / sores Cardiac: denies: Chest pain / pressure, Palpitations, Pedal edema Respiratory: denies: Dyspnea, Cough GI: reports: Nausea. denies: Abdominal Pain, Abdominal Swelling, Vomiting, Constipation, Diarrhea : reports: Frequency. 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 : None HEENT: None Psych: Depression, Anxiety Musculoskeletal: None Derm: None - Past Surgical History Past Surgical History: Yes General: Cholecystectomy - Present Medications Home Medications: Ambulatory Orders Medication Instructions Recorded Confirmed Metoclopramide [Reglan] 10 mg PO Q6H PRN #20 tablet 02/27/19 Promethazine Supp [Phenergan Supp] 25 mg GA Q6HR PRN #20 supp 03/11/19 Metoclopramide [Reglan] 10 mg PO Q6H PRN #20 tablet 11/15/19 Ondansetron Odt [Zofran] 4 mg TL Q6H PRN #10 tablet 11/15/19 Promethazine [Phenergan] 25 mg PO Q6H PRN #10 tab 11/15/19 Metformin HCl 1,000 mg PO BID #120 tablet 01/06/20 - Allergies Allergies/Adverse Reactions: Allergies Allergy/AdvReac Type Severity Reaction Status Date / Time No Known Drug Allergies Allergy Verified 01/06/20 18:02 - Social History Does the pt smoke?: No Smoking Status: Never smoker Does the pt drink ETOH?: No Does the pt have substance abuse?: No - Immunizations Immunizations are current?: Yes - POLST Patient has POLST: No PD ED PE NORMAL - General General: Alert and oriented X 3, No acute distress - HEENT HEENT: PERRL, EOMI - Neck Neck: Supple, no meningeal sign, No adenopathy - Cardiac Cardiac: RRR, No murmur - Respiratory Respiratory: No respiratory distress - Abdomen Abdomen: Normal bowel sounds, Soft, Non tender - Female Female : Deferred - Back Back: No CVA TTP - Derm Derm: Normal color, Warm and dry - Extremities Extremities: No deformity - Neuro Neuro: Alert and oriented X 3, hard tile setter apprentice 2-12 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 Eye Opening: Spontaneous Motor: Obeys Commands Verbal: Oriented GCS Score: 15 Results - Vitals Vitals: Vital Signs - 24 hr 01/06/20 01/06/20 18:02 21:00 Temperature 36.2 C L 37.1 C Heart Rate 114 H 100 Respiratory 16 16 Rate Blood Pressure 151/105 H 146/70 H O2 Saturation 98 99 Oxygen O2 Source Room air - Labs Labs: Laboratory Tests 01/06/20 01/06/20 01/06/20 18:40 20:10 20:10 WBC 13.2 H RBC 5.05 Hgb 14.4 Hct 43.8 MCV 86.7 MCH 28.5 MCHC 32.9 RDW 12.9 Plt Count 350 MPV 9.2 Neut # (Auto) 8.3 H Lymph # (Auto) 3.5 [place] # (Auto) 0.5 Eos # (Auto) 0.3 Baso # (Auto) 0.1 Absolute Nucleated RBC 0.00 Nucleated RBC % 0.0 VBG pH VBG pCO2 VBG pO2 VBG HCO3 VBG Total CO2 VBG O2 Saturation VBG Base Excess Sodium 133 L Potassium 4.3 Chloride 97 L Carbon Dioxide 23 Anion Gap 13.0 BUN 12 Creatinine 0.7 Estimated GFR (MDRD) 97 Glucose 326 H POC Whole Bld Glucose Calcium 9.2 Total Bilirubin 0.7 AST 37 ALT 42 Alkaline Phosphatase 87 Total Protein 7.7 Albumin 3.8 Globulin 3.9 Albumin/Globulin Ratio 1.0 Lipase 24 Urine Color YELLOW Urine Clarity CLEAR Urine pH 6.0 Ur Specific [place] 1.010 Urine Protein NEGATIVE Urine Glucose (UA) >=1000 H Urine Ketones 40 H Urine Occult Blood NEGATIVE Urine Nitrite NEGATIVE Urine Bilirubin NEGATIVE Urine Urobilinogen 0.2 (NORMAL) Ur Leukocyte Esterase NEGATIVE Ur Microscopic Review NOT INDICATED Urine Culture Comments NOT INDICATED Urine HCG, Qual NEGATIVE Serum Ketones NEGATIVE 01/06/20 01/06/20 20:10 20:23 WBC RBC Hgb Hct MCV MCH MCHC RDW Plt Count MPV Neut # (Auto) Lymph # (Auto) [place] # (Auto) Eos # (Auto) Baso # (Auto) Absolute Nucleated RBC Nucleated RBC % VBG pH 7.353 VBG pCO2 42.6 VBG pO2 27.8 VBG HCO3 23.1 VBG Total CO2 24.5 VBG O2 Saturation 46.0 L VBG Base Excess -2.4 L Sodium Potassium Chloride Carbon Dioxide Anion Gap BUN Creatinine Estimated GFR (MDRD) Glucose POC Whole Bld Glucose 322 H Calcium Total Bilirubin AST ALT Alkaline Phosphatase Total Protein Albumin Globulin Albumin/Globulin Ratio Lipase Urine Color Urine Clarity Urine pH Ur Specific [place] Urine Protein Urine Glucose (UA) Urine Ketones Urine Occult Blood Urine Nitrite Urine Bilirubin Urine Urobilinogen Ur Leukocyte Esterase Ur Microscopic Review Urine Culture Comments Urine HCG, Qual Serum Ketones PD MEDICAL DECISION MAKING - ED course Complexity details: reviewed results, considered differential, d/w patient ED course: 34-year-old female presents to the emergency department with chief complaint of urinary frequency excessive thirst. Known history of insulin resistance but no formal diabetes diagnosis. Her primary care physician sent her to the ER to rule out DKA. In the emergency department her sugar was 322. Serum ketones were negative. She had no gap or acidosis. Urine showed no signs of infection. pt was given 2 liters of IVF here in the ED. It does appear that this patient has transitioned into diabetes. I have advised that she needs very close follow-up with a primary care provider likely to start insulin. I will increase her metformin from 500 mg twice daily to 1000 mg twice daily. Patient is to return to the emergency department for fevers uncontrolled vomiting altered mental status abdominal pain. Departure - Departure Disposition: Home, Self Care Clinical Impression: Diabetes type 2, uncontrolled Qualifiers: Glycemic state: with hyperglycemia Qualified Code(s): E11.65 - Type 2 diabetes mellitus with hyperglycemia Condition: Stable Record reviewed to determine appropriate education?: Yes Instructions: Diabetes Type 2 Oral Meds Follow-Up: Carmella Coyle ARNP [Primary Care Provider] - Prescriptions: Metformin HCl 1,000 mg PO BID #120 tablet Comments: Anne-Marie unfortunately it looks like you have progressed into diabetes. I would like you to increase your metformin to 1000 mg twice a day. It is important that you see your primary care doctor in follow-up this week. You likely need to be started on insulin therapy. Your labs today show that you are not in ketoacidosis. Your urine showed no signs of infection. If you have uncontrolled vomiting, suddenly severe abdominal pain, near fainting or excessive fatigue please return immediately to the ER
[2020-01-06 20:17] LABS: BASOPHILS # (AUTO) 0.1 10^3/uL (0.0-0.1); EOSINOPHILS # (AUTO) 0.3 10^3/uL (0.0-0.7); HGB - HEMOGLOBIN 14.4 g/dL (12.0-16.0); LYMPHOCYTES # (AUTO) 3.5 10^3/uL (1.5-3.5); LYMPHOCYTES % (AUTO) 26.6 %; MEAN CORPUSCULAR HEMOGLOBIN 28.5 pg (27.0-31.0); MEAN CORPUSCULAR HGB CONC 32.9 g/dL (32.0-36.0); MEAN CORPUSCULAR VOLUME 86.7 fL (81.0-99.0); MEAN PLATELET VOLUME 9.2 fL (7.9-10.8); MONOCYTES # (AUTO) 0.5 10^3/uL (0.0-1.0); MONOCYTES % (AUTO) 3.6 %; NEUTROPHILS # (AUTO) 8.3 10^3/uL (1.5-6.6); NEUTROPHILS % (AUTO) 63.3 %; PLT - PLATELET COUNT 350 10^3/uL (130-450); RED BLOOD COUNT 5.05 10^6/uL (4.20-5.40); RED CELL DISTRIBUTION WIDTH 12.9 % (12.0-15.0); WHITE BLOOD COUNT 13.2 x10^3/uL (4.8-10.8)
[2020-01-06 20:21] LABS: VBG BASE EXCESS -2.4 mmol/L (-2 - +2); VBG PCO2 42.6 mmHg (41-51); VBG PH 7.353 (7.31-7.41); VBG PO2 27.8 mmHg (25-47); VBG TOTAL CO2 24.5 mmol/L (24-29)
[2020-01-06 20:28] LABS: ALBUMIN 3.8 g/dL (3.2-5.5); ALKALINE PHOSPHATASE 87 IU/L (42-121); ALT ALANINE AMINOTRANSFERASE 42 IU/L (10-60); AST ASPARTATE AMINOTRANSFERASE 37 IU/L (10-42); BILIRUBIN,TOTAL 0.7 mg/dL (0.2-1.0); BUN - BLOOD UREA NITROGEN 12 mg/dL (6-20); CALCIUM 9.2 mg/dL (8.5-10.3); CARBON DIOXIDE - CO2 23 mmol/L (21-32); CHLORIDE 97 mmol/L (101-111); CREATININE 0.7 mg/dL (0.4-1.0); GLUCOSE 326 mg/dL (70-100); LIPASE 24 U/L (22-51); SODIUM 133 mmol/L (135-145); TOTAL PROTEIN 7.7 g/dL (6.7-8.2)
[2020-01-06 20:30] LABS: KETONES, SERUM (ACETEST) NEGATIVE (NEGATIVE)
[2020-01-06 21:04] VITALS: BP 146/70
== END 2020-01-06 22:30 | disposition home or self-care (01) ==
LOC: ED 17:57
DX: E11.65 Type 2 diabetes mellitus with hyperglycemia (principal); Z79.84 Long term (current) use of oral hypoglycemic drugs; E88.81 Metabolic syndrome and other insulin resistance; I10 Essential (primary) hypertension
CPT/HCPCS: 36415; 80053; 81001; 81003; 81025; 82009; 82803; 83690; 85025; 87086; 96360; 99283

== ENCOUNTER 2020-04-06 13:38 | Outpatient (CLI) | payer MEDICAID ==
[2020-04-06 19:56] LABS: BASOPHILS # (AUTO) 0.1 10^3/uL (0.0-0.1); BASOPHILS % (AUTO) 1.1 %; EOSINOPHILS # (AUTO) 0.2 10^3/uL (0.0-0.7); EOSINOPHILS % (AUTO) 1.9 %; HGB - HEMOGLOBIN 12.9 g/dL (12.0-16.0); LYMPHOCYTES # (AUTO) 3.8 10^3/uL (1.5-3.5); LYMPHOCYTES % (AUTO) 35.5 %; MEAN CORPUSCULAR HEMOGLOBIN 27.4 pg (27.0-31.0); MEAN CORPUSCULAR HGB CONC 31.9 g/dL (32.0-36.0); MEAN CORPUSCULAR VOLUME 86.2 fL (81.0-99.0); MEAN PLATELET VOLUME 9.5 fL (7.9-10.8); MONOCYTES # (AUTO) 0.5 10^3/uL (0.0-1.0); MONOCYTES % (AUTO) 4.5 %; NEUTROPHILS % (AUTO) 56.1 %; PLT - PLATELET COUNT 341 10^3/uL (130-450); WHITE BLOOD COUNT 10.8 x10^3/uL (4.8-10.8)
[2020-04-06 20:15] LABS: ALBUMIN 3.9 g/dL (3.2-5.5); ALBUMIN/GLOBULIN RATIO 1.2 (1.0-2.2); ALKALINE PHOSPHATASE 71 IU/L (42-121); ALT ALANINE AMINOTRANSFERASE 42 IU/L (10-60); AST ASPARTATE AMINOTRANSFERASE 36 IU/L (10-42); BILIRUBIN,TOTAL 0.6 mg/dL (0.2-1.0); BUN - BLOOD UREA NITROGEN 8 mg/dL (6-20); CALCIUM 9.3 mg/dL (8.5-10.3); CARBON DIOXIDE - CO2 25 mmol/L (21-32); CHLORIDE 97 mmol/L (101-111); CHOLESTEROL 166 mg/dL; CREATININE 0.6 mg/dL (0.4-1.0); GLUCOSE 238 mg/dL (70-100); HDL CHOLESTEROL 33 mg/dL; LDL CHOLESTEROL,CALCULATED 81 mg/dL; LDL/HDL RATIO 2.5 (<4.4); SODIUM 134 mmol/L (135-145); TOTAL PROTEIN 7.1 g/dL (6.7-8.2); VLDL CHOLESTEROL 52 mg/dL
== END 2020-04-06 13:39 | disposition home or self-care (01) ==
LOC: LAB.S 13:38
PROVIDERS: ATTEND Registered Nurse
DX: I10 Essential (primary) hypertension (principal); E28.2 Polycystic ovarian syndrome; G47.33 Obstructive sleep apnea (adult) (pediatric); E66.8 Other obesity; E11.43 Type 2 diabetes mellitus with diabetic autonomic (poly)neuropathy
CPT/HCPCS: 36415; 80053; 80061; 83036; 83721; 84443; 85025

== ENCOUNTER 2020-05-18 13:59 | Outpatient (CLI) | payer MEDICAID ==
--- NOTE | 2020-05-19 10:08 | Mammography Report ---
BILATERAL DIGITAL SCREENING MAMMOGRAM: 05/18/2020 CLINICAL: Baseline exam. Routine screening. Family history of breast cancer. No prior exams were available for comparison. There are scattered fibroglandular elements in both br easts. No significant masses, calcifications, or other findings are seen in either breast. IMPRESSION: NEGATIVE There is no mammographic evidence of malignancy. Follow-up with ACR/ACS guidelines. This exam was interpreted at Station ID: [id number]. NOTE: For mammograms, a report in lay terms will be sent to the patient. Approximately 15% of breast malignancies will not be visualized mammographically. In the management of a palpable breast mass, a negative mammogram must not discourage biopsy of a clinically suspicious lesion. Electronically Signed By: Bart [email or web address]:05/18/2020 15:13:17 ACR BI-RADS Category 1: Negative 3341F PARENCHYMAL PATTERN: (A) - The breast(s) demonstrate(s) scattered fibroglandular densities. BI-RADS CATEGORY: (1) - 1 RECOMMENDATION: (ADDMAM) - Recommend additional mammographic views. no recall LATERALITY: (B)
== END 2020-05-18 14:00 | disposition home or self-care (01) ==
LOC: DI 13:59
PROVIDERS: ATTEND Registered Nurse
DX: Z12.31 Encounter for screening mammogram for malignant neoplasm of breast (principal); Z80.3 Family history of malignant neoplasm of breast

== ENCOUNTER 2020-10-19 13:02 | Outpatient (CLI) | payer MEDICAID ==
[2020-10-19 20:41] LABS: THYROID STIMULATING HORMONE 1.19 uIU/mL (0.34-5.60)
[2020-10-19 20:43] LABS: FREE T4 (FREE THYROXINE) 0.91 ng/dL (0.58-1.64)
[2020-10-19 20:54] LABS: ESTIMATED AVERAGE GLUCOSE 266 mg/dL (70-100); HEMOGLOBIN A1c% 10.9 % (4.27-6.07)
== END 2020-10-19 13:03 | disposition home or self-care (01) ==
LOC: LAB.S 13:02
PROVIDERS: ATTEND Nurse Practitioner
DX: E11.65 Type 2 diabetes mellitus with hyperglycemia (principal)
CPT/HCPCS: 36415; 81599; 82306; 82530; 83036; 84439; 84443; 84681; 86337; 86341

== ENCOUNTER 2021-01-05 08:00 | Outpatient (CLI) | payer MEDICAID ==
--- NOTE | 2021-01-06 15:50 | XRAY Report ---
PROCEDURE: Foot 3 View LT INDICATIONS: SPRAIN OF LEFT FOOT TECHNIQUE: 3 views of the foot were acquired. COMPARISON: None FINDINGS: Bones: No fractures or dislocations. No suspicious bony lesions. Calcaneal spur is noted. Soft tissues: No tibiotalar joint effusion. Achilles tendon appears normal. IMPRESSION: No visualized acute fracture or dislocation. However, occult injury cannot be excluded. Recommend flor rt interval imaging follow-up in 7-10 days as clinically indicated for additional evaluation. Reviewed by: Basilia David MD on 01/06/2021 3:49 PM PDT Approved by: Basilia David MD on 01/06/2021 3:49 PM PDT Station ID: [id number]
== END 2021-01-05 23:59 | disposition home or self-care (01) ==
LOC: DI.S 08:00
PROVIDERS: ATTEND Emergency Medicine
DX: S93.692A Other sprain of left foot, initial encounter (principal)

== ENCOUNTER 2021-01-31 13:30 | Outpatient (CLI) | payer MEDICAID ==
[2021-01-31 20:17] LABS: ESTIMATED AVERAGE GLUCOSE 163 mg/dL (70-100); HEMOGLOBIN A1c% 7.3 % (4.27-6.07)
== END 2021-01-31 13:31 | disposition home or self-care (01) ==
LOC: LAB.S 13:30
PROVIDERS: ATTEND Nurse Practitioner
DX: E11.65 Type 2 diabetes mellitus with hyperglycemia (principal)
CPT/HCPCS: 36415; 83036

== ENCOUNTER 2021-11-29 08:00 | Outpatient (CLI) | payer MEDICAID | END 2021-11-29 23:59 | disposition home or self-care (01) | LOC: LAB 08:00 | PROVIDERS: ATTEND Nurse Practitioner | DX: L98.9 Disorder of the skin and subcutaneous tissue, unspecified (principal) | CPT/HCPCS: 87070 ==

== ENCOUNTER 2022-01-03 13:41 | Outpatient (CLI) | payer MEDICAID ==
[2022-01-03 21:58] LABS: ESTIMATED AVERAGE GLUCOSE 346 mg/dL (70-100); HEMOGLOBIN A1c% 13.7 % (4.27-6.07)
== END 2022-01-03 13:42 | disposition home or self-care (01) ==
LOC: LAB.S 13:41
PROVIDERS: ATTEND Nurse Practitioner
DX: E11.8 Type 2 diabetes mellitus with unspecified complications (principal); E66.01 Morbid (severe) obesity due to excess calories; R20.3 Hyperesthesia; L98.9 Disorder of the skin and subcutaneous tissue, unspecified
CPT/HCPCS: 36415; 83036; 84443

== ENCOUNTER 2022-06-05 17:22 | Emergency (ER) | payer MEDICAID ==
[2022-06-05] MEDS ORDERED: KETOROLAC 15 MG/ML VIAL IVP STA (17:48)
[2022-06-05] MEDS ORDERED: SODIUM CHLORIDE 0.9% 1,000 ML IV STA (17:48)
[2022-06-05] MEDS ORDERED: CYCLOBENZAPRINE 10 MG TABLET PO STA (17:48)
--- NOTE | 2022-06-05 17:50 | ED Physician Documentation ---
History of Present Illness - Stated complaint Stated Complaint: NECK PX - Chief complaint Chief Complaint: General - History obtained from History obtained from: Patient - Additonal information Additional information: 36-year-old woman with history of sleep apnea, type 1.5 diabetes, PCOS presents with right-sided neck pain that she woke up with yesterday morning. The night prior she had been playing video games with her neck kind of hunched over. Now has had pain since yesterday morning at the base of the inferior part of the sternocleidomastoid. It hurts to rotate her neck. There was no sore throat. No fevers. She went to the walk-in clinic, there was a concern for Lemierres syndrome so was referred here for further evaluation and treatment. Review of Systems Constitutional: denies: Fever, Chills Ears: denies: Loss of hearing, Ear pain Nose: denies: Rhinorrhea / runny nose, Congestion Throat: denies: Sore throat PD PAST MEDICAL HISTORY - Past Medical History Cardiovascular: Hypertension Respiratory: None Neuro: None Endocrine/Autoimmune: Type 2 diabetes, Other GI: GERD, Other MANAGER OB: Other : Incontinence HEENT: None Psych: Depression, Anxiety Musculoskeletal: None Derm: None - Past Surgical History Past Surgical History: Yes General: Cholecystectomy - Present Medications Home Medications: Ambulatory Orders Medication Instructions Recorded Confirmed Blood Sugar Diagnostic [Glucometer 1 each MC BID #120 strip 01/06/20 07/26/21 Strips] Blood-Glucose Meter [Glucometer] 1 each BID #1 each 01/06/20 07/26/21 D3 50 mcg DAILY 10/29/20 07/26/21 Metformin HCl [Fortamet] 500 mg PO BID 10/29/20 07/26/21 Vitamin B Complex/Folic Acid 1 tab PO DAILY 10/29/20 07/26/21 [B-Complex Tablet] Aviane 1 each PO DAILY 11/02/20 07/26/21 Bupropion HCl [Wellbutrin Xl] 300 mg PO DAILY 11/02/20 07/26/21 Insulin Glargine [Lantus Solostar] 17 unit SUBQ BID 11/02/20 07/26/21 Insulin Lispro [Humalog] 1 - 6 units SUBQ QID 11/02/20 07/26/21 Mag Citrate/Potassium Citrate 99 meq PO DAILY 11/02/20 07/26/21 [K-mg Citrate 99-70 mg Capsule] Metoprolol Succinate [Toprol Xl] 25 mg PO DAILY PM 11/02/20 07/26/21 Omeprazole [PriLOSEC] 20 mg PO DAILY PM 11/02/20 07/26/21 Prazosin [Minipress] 3 mg PO QPM 11/02/20 07/26/21 Sertraline HCl 200 mg PO DAILY 11/02/20 07/26/21 Trazodone HCl 300 mg PO DAILY PM 11/02/20 07/26/21 lisinopriL [Lisinopril] 20 mg PO DAILY PM 11/02/20 07/26/21 Cyclobenzaprine [Flexeril] 10 mg PO TID PRN #20 tablet 06/05/22 Metoclopramide [Reglan] 10 mg PO Q6H PRN #20 tablet 06/05/22 - Allergies Allergies/Adverse Reactions: Allergies Allergy/AdvReac Type Severity Reaction Status Date / Time No Known Drug Allergies Allergy Verified 06/05/22 17:37 - Social History Does the pt smoke?: No Smoking Status: Never smoker Does the pt drink ETOH?: No Does the pt have substance abuse?: No - Immunizations Immunizations are current?: Yes - POLST Patient has POLST: No PD ED PE NORMAL - Vitals Vital signs reviewed: Yes - General General: Alert and oriented X 3, No acute distress, Other (Modest resting tachycardia, nontoxic) - HEENT HEENT: Other (Muscular tenderness of the right sternocleidomastoid with difficulty rotation of the neck. Oropharynx is normal. No cervical adenopathy. No anterior neck tenderness.) - Neck Neck: Supple, no meningeal sign, No bony TTP - Cardiac Cardiac: RRR, No murmur - Respiratory Respiratory: No respiratory distress, Clear bilaterally - Abdomen Abdomen: Non tender - Extremities Extremities: Other (Normal and equal bilateral upper extremity department editor strength, thumb extension, and interosseous strength.) - Neuro Neuro: Alert and oriented X 3, No motor deficit, No sensory deficit, Normal speech Eye Opening: Spontaneous Motor: Obeys Commands Verbal: Oriented GCS Score: 15 Results - Vitals Vitals: Vital Signs - 24 hr 06/05/22 06/05/22 06/05/22 17:37 17:41 18:33 Temperature 37.3 C 37.3 C Heart Rate 122 H 122 H 101 H Respiratory 18 18 16 Rate Blood Pressure 154/95 H 154/95 H 137/82 H O2 Saturation 99 99 97 Oxygen O2 Source Room air - Labs Labs: Laboratory Tests 06/05/22 06/05/22 17:56 17:56 WBC 12.8 H RBC 5.13 Hgb 14.1 Hct 42.6 MCV 83.0 MCH 27.5 MCHC 33.1 RDW 13.0 Plt Count 336 MPV 9.3 Neut # (Auto) 8.0 H Lymph # (Auto) 3.9 H Cuming # (Auto) 0.5 Eos # (Auto) 0.2 Baso # (Auto) 0.1 Absolute Nucleated RBC 0.00 Nucleated RBC % 0.0 Sodium 133 L Potassium 3.8 Chloride 98 L Carbon Dioxide 19 L Anion Gap 16.0 H BUN 10 Creatinine 0.6 Estimated GFR (MDRD) 114 Glucose 333 H Calcium 9.7 PD Medical Decision Making - ED course ED course: 36-year-old woman presents with right-sided neck pain that seems like a sternocleidomastoid spasm. She was referred here for evaluation and treatment for potential Lemierre's syndrome albeit this does not really fit her complaint. Work-up here consisted of a right jugular ultrasound ruling out thrombus. Lab work was done with mildly elevated leukocytosis and she has a chemistry panel notable for mild acidosis and a glucose of 333. She received IV fluid here as well as IV insulin. She has been intermittently compliant with self checking blood sugar and insulin administration. I discussed with her that with her poor control of diabetes it was feasible that she was getting dehydration from glycosuria and would benefit from improved glycemic control. She notes that she has a lot of problems with gastroparesis and she has chronic debilitating nausea and that she feels like insulin makes her nausea worse. I sent an email to her primary care nurse practitioner encouraging referrals to the breaker up machine operator and potentially endocrinology as well. Departure - Departure Disposition: 01 Home, Self Care Clinical Impression: Neck muscle spasm Uncontrolled diabetes mellitus Qualifiers: Glycemic state: with hyperglycemia Condition: Good Record reviewed to determine appropriate education?: Yes Instructions: ED Hyperglycemia Diabetic, ED Spasm Neck No Injury Follow-Up: Carmella Coyle ARNP [Primary Care Provider] - Prescriptions: Cyclobenzaprine [Flexeril] 10 mg PO TID PRN #20 tablet PRN Reason: Spasms Metoclopramide [Reglan] 10 mg PO Q6H PRN #20 tablet PRN Reason: nausea or headache Comments: You are seen today for neck muscle spasm which I think is likely related to dehydration from poorly controlled blood sugar. I am prescribing a muscle relaxer and restarting Reglan, but I think the most important thing is improved glycemic control. I sent an email to your primary care nurse practitioner recommending referral to the breaker up machine operator and/or endocrinology do your best to check your blood sugars and take insulin as prescribed. Return for new or worsening symptoms. Follow-up with your primary care physician nurse practitioner next available appointment.
[2022-06-05 18:09] LABS: BASOPHILS # (AUTO) 0.1 10^3/uL (0.0-0.1); BASOPHILS % (AUTO) 0.7 %; EOSINOPHILS # (AUTO) 0.2 10^3/uL (0.0-0.7); EOSINOPHILS % (AUTO) 1.3 %; HCT - HEMATOCRIT 42.6 % (37.0-47.0); HGB - HEMOGLOBIN 14.1 g/dL (12.0-16.0); LYMPHOCYTES # (AUTO) 3.9 10^3/uL (1.5-3.5); LYMPHOCYTES % (AUTO) 30.3 %; MEAN CORPUSCULAR HEMOGLOBIN 27.5 pg (27.0-31.0); MEAN CORPUSCULAR HGB CONC 33.1 g/dL (32.0-36.0); MEAN PLATELET VOLUME 9.3 fL (7.9-10.8); MONOCYTES # (AUTO) 0.5 10^3/uL (0.0-1.0); MONOCYTES % (AUTO) 3.7 %; NEUTROPHILS % (AUTO) 62.8 %; PLT - PLATELET COUNT 336 10^3/uL (130-450); RED BLOOD COUNT 5.13 10^6/uL (4.20-5.40); WHITE BLOOD COUNT 12.8 x10^3/uL (4.8-10.8)
[2022-06-05 18:15] LABS: CALCIUM 9.7 mg/dL (8.5-10.3); CREATININE 0.6 mg/dL (0.4-1.0); POTASSIUM 3.8 mmol/L (3.5-5.0)
[2022-06-05] MEDS ORDERED: INSULIN REGULAR HUMAN 100 UNIT/1 ML 10 ML MDV IVP STA (18:36)
[2022-06-05 18:39] VITALS: BP 137/82
--- NOTE | 2022-06-05 18:42 | Ultrasound Report ---
PROCEDURE: Duplex Venous Limited INDICATIONS: Neck pain, please evaluate for jugular thrombus TECHNIQUE: Real-time imaging, as well as color and pulse Doppler interrogation, were performed of the right jugu lar region COMPARISON: None. FINDINGS: Negative for right jugular venous thrombosis. IMPRESSION: No findings of right jugular venous thrombosis. Note: Concordant preliminary findings given by the plant operations manager upon the completion of the examination to Dr. Cooper. Reviewed by: Casimiro Escobedo MD on 06/05/2022 5:41 PM [facility] Approved by: Casimiro Escobedo MD on 06/05/2022 5:41 PM [facility] Station ID: [id number]
== END 2022-06-05 19:09 | disposition home or self-care (01) ==
LOC: ED 17:22
DX: M62.838 Other muscle spasm (principal); E13.65 Other specified diabetes mellitus with hyperglycemia; I10 Essential (primary) hypertension; Z79.84 Long term (current) use of oral hypoglycemic drugs; Z79.4 Long term (current) use of insulin; Z79.899 Other long term (current) drug therapy
CPT/HCPCS: 36415; 80048; 85025; 93971; 96361; 96374; 99284; A9270; J1815

== ENCOUNTER 2022-06-13 08:00 | Outpatient (CLI) | payer MEDICAID ==
--- NOTE | 2022-06-13 15:38 | XRAY Report ---
PROCEDURE: Ankle 3 View RT INDICATIONS: RIGHT ANKLE SPRAIN TECHNIQUE: 3 views of the ankle were acquired. COMPARISON: None FINDINGS: Bones: No fractures or dislocations. Ankle mortise is normally aligned. No suspicious bony lesions . Soft tissues: No tibiotalar joint effusion. Achilles tendon appears normal. IMPRESSION: No visualized acute fracture or dislocation. However, occult injury cannot be excluded. Recommend short interval imaging follow-up in 7-10 days as clinically indicated for additional evalua tion. Reviewed by: Basilia David MD on 06/13/2022 3:36 PM PST Approved by: Basilia David MD on 06/13/2022 3:36 PM PST Station ID: [id number]
== END 2022-06-13 23:59 | disposition home or self-care (01) ==
LOC: DI.S 08:00
PROVIDERS: ATTEND Physician Assistant Medical
DX: S93.401A Sprain of unspecified ligament of right ankle, initial encounter (principal)

== ENCOUNTER 2023-05-03 13:30 | Outpatient (CLI) | payer MEDICAID ==
--- NOTE | 2023-05-03 18:13 | Ultrasound Report ---
PROCEDURE: Pelvic w/Transvaginal INDICATIONS: PELVIC PAIN TECHNIQUE: Real-time scanning was performed of the pelvic organs, with image documentation. Additional endovagi nal scanning was necessary due to incomplete visualization of the adnexal and endometrial structures by transabdominal scanning. COMPARISON: None. FINDINGS: Uterus: Uterus is anteverted and normal in size at 6.8 x 2.8 x 3.7 cm. The myometrium is homogeneou s. The endometrium measures 5 mm in combined thickness. Ovaries: The right ovary measures 2.7 x 1.3 x 1.6 cm, with a calculated ovarian volume of 3.2 cc. T he left ovary measures 3.5 x 2.0 x 3.2 cm, with a calculated ovarian volume of 12.6 cc. There is a 1. 9 x 1.2 x 2.0 cm left ovarian hemorrhagic cyst. The ovaries have a normal sonographic appearance. Le ss than 12 follicles can be seen in each ovary. No adnexal masses are seen. Other: No pathologic free abdominal or pelvic fluid. IMPRESSION: Pelvis without acute sonographic abnormalities. A 2.0 cm left ovarian hemorrhagic cyst. Consider follow-up pelvic ultrasound in 6-12 weeks to mariettan t stability versus resolution. Reviewed by: Daniel Pope MD on 05/03/2023 6:12 PM PST Approved by: Daniel Pope MD on 05/03/2023 6:12 PM PST Station ID: [id number]
== END 2023-05-03 13:31 | disposition home or self-care (01) ==
LOC: DI 13:30
PROVIDERS: ATTEND Nurse Practitioner
DX: N83.202 Unspecified ovarian cyst, left side (principal)

== ENCOUNTER 2023-05-23 13:04 | Outpatient (CLI) | payer MEDICAID ==
[~2023-05-23 13:04] MED LIST: GADOTERATE MEGLUMINE 10 MMOL/20 ML VIAL ONE
[2023-05-23 13:31] LABS: CREATININE 0.5 mg/dL (0.6-1.3)
--- NOTE | 2023-05-23 16:12 | MRI Report ---
PROCEDURE: PELVIS W/WO INDICATIONS: PELVIC PAIN CONTRAST: clariscan 20ml TECHNIQUE: Coronal ultra fast SE, sagittal breath-hold T2 FSE; axial T1 FSE with and without fat saturation thro ugh the pelvis. Optional long- and short-axis uterine nonbreath-hold T2 FSE through the uterus. Sag ittal or axial dynamic ultra fast GE during administration of contrast. Post-contrast axial or coron al ultra fast GE / 2-D spoiled GE with fat saturation from the iliac crests to the symphysis. Option al diffusion weighted imaging and ADC may be performed. COMPARISON: None. FINDINGS: Image quality: Diagnostic Lower abdomen: No bowel obstruction. No abscess or ascites. Bladder: Unremarkable Reproductive organs: Normal thickness of the endometrium and junctional zone. Unremarkable appearance of the cervix, with prominent stroma that is likely physiologic. The ovaries are seen, with small fo llicles, overall not enlarged. Previous left ovarian complex cystic lesion is not identified. On precontrast T1-weighted images, no evidence of intrinsically T1 hyperintense endometriosis deposit s. Rectum: Unremarkable Vessels and lymph nodes: No pathologic lymph nodes by size criteria. No aneurysmal vessel identified. Pelvic wall: Unremarkable Bones: No acute or suspicious osseous findings. IMPRESSION: Unremarkable appearance of the uterus and ovaries. Previously seen complex left ovary cystic lesion i s not identified, probably a hemorrhagic cyst. No MRI evidence of active deep pelvic endometriosis de posits. Reviewed by: Salbador Gupta MD on 05/23/2023 4:11 PM PST Approved by: Salbador Gupta MD on 05/23/2023 4:11 PM PST Station ID: [id number]
[2023-05-23] MEDS ORDERED: GADOTERATE MEGLUMINE 10 MMOL/20 ML VIAL IVP ONE (17:47)
== END 2023-05-23 13:05 | disposition home or self-care (01) ==
LOC: LAB 13:04
PROVIDERS: ATTEND Nurse Practitioner
DX: R10.2 Pelvic and perineal pain (principal)
CPT/HCPCS: 36415; 72197; 82565; A9575

== ENCOUNTER 2023-07-23 10:54 | Outpatient (CLI) | payer MEDICAID ==
[2023-07-23 14:30] LABS: BASOPHILS # (AUTO) 0.1 10^3/uL (0.0-0.1); EOSINOPHILS # (AUTO) 0.1 10^3/uL (0.0-0.7); EOSINOPHILS % (AUTO) 1.6 %; HCT - HEMATOCRIT 37.7 % (37.0-47.0); HGB - HEMOGLOBIN 11.5 g/dL (12.0-16.0); LYMPHOCYTES # (AUTO) 3.1 10^3/uL (1.5-3.5); LYMPHOCYTES % (AUTO) 38.8 %; MEAN CORPUSCULAR HEMOGLOBIN 23.9 pg (27.0-31.0); MEAN CORPUSCULAR HGB CONC 30.5 g/dL (32.0-36.0); MEAN CORPUSCULAR VOLUME 78.2 fL (81.0-99.0); MEAN PLATELET VOLUME 9.9 fL (7.9-10.8); MONOCYTES # (AUTO) 0.4 10^3/uL (0.0-1.0); MONOCYTES % (AUTO) 5.5 %; NEUTROPHILS # (AUTO) 4.1 10^3/uL (1.5-6.6); NEUTROPHILS % (AUTO) 52.5 %; PLT - PLATELET COUNT 329 10^3/uL (130-450); RED BLOOD COUNT 4.82 10^6/uL (4.20-5.40); RED CELL DISTRIBUTION WIDTH 14.3 % (12.0-15.0); WHITE BLOOD COUNT 7.9 x10^3/uL (4.8-10.8)
[2023-07-23 15:00] LABS: THYROID STIMULATING HORMONE 1.49 uIU/mL (0.34-5.60)
[2023-07-23 15:17] LABS: ALBUMIN 3.7 g/dL (3.2-5.5); ALBUMIN/GLOBULIN RATIO 1.4 (1.0-2.2); ALKALINE PHOSPHATASE 69 IU/L (42-121); ALT ALANINE AMINOTRANSFERASE 51 IU/L (10-60); AST ASPARTATE AMINOTRANSFERASE 49 IU/L (10-42); BILIRUBIN,TOTAL 0.5 mg/dL (0.2-1.0); BUN - BLOOD UREA NITROGEN 9 mg/dL (6-20); CALCIUM 9.2 mg/dL (8.5-10.3); CARBON DIOXIDE - CO2 24 mmol/L (21-32); CHLORIDE 102 mmol/L (101-111); CHOL/HDL RATIO 5.3 (<4.4); CHOLESTEROL 175 mg/dL; CREATININE 0.5 mg/dL (0.6-1.3); GFR - MDRD 140 (>89); GLUCOSE 349 mg/dL (74-104); HDL CHOLESTEROL 33 mg/dL; LDL CHOLESTEROL,CALCULATED 69 mg/dL; LDL/HDL RATIO 2.1 (<4.4); POTASSIUM 4.1 mmol/L (3.5-4.5); SODIUM 134 mmol/L (135-145); TOTAL PROTEIN 6.4 g/dL (6.4-8.9); TRIGLYCERIDES 363 mg/dL (48-352); VLDL CHOLESTEROL 73 mg/dL
== END 2023-07-23 10:55 | disposition home or self-care (01) ==
LOC: LAB.S 10:54
PROVIDERS: ATTEND Registered Nurse
DX: E88.810 Metabolic syndrome (principal); Z79.899 Other long term (current) drug therapy
CPT/HCPCS: 36415; 80053; 80061; 83721; 84443; 85025

== ENCOUNTER 2023-09-06 08:00 | Outpatient (CLI) | payer MEDICAID ==
[2023-09-06 20:43] LABS: BACTERIAL VAGINOSIS DNA NEGATIVE (NEGATIVE); CANDIDA GLABRATA DNA POSITIVE (NEGATIVE); CANDIDA GROUP DNA NEGATIVE (NEGATIVE); CANDIDA KRUSEI DNA NEGATIVE (NEGATIVE); TRICHOMONAS VAGINALIS DNA NEGATIVE (NEGATIVE)
== END 2023-09-06 23:59 | disposition home or self-care (01) ==
LOC: LAB.WC 08:00
PROVIDERS: ATTEND Nurse Practitioner
DX: L29.8 Other pruritus (principal)
CPT/HCPCS: 81514

== ENCOUNTER 2023-10-01 08:00 | Outpatient (CLI) | payer MEDICAID ==
[2023-10-02 00:46] LABS: BACTERIAL VAGINOSIS DNA NEGATIVE (NEGATIVE); CANDIDA GROUP DNA NEGATIVE (NEGATIVE); CANDIDA KRUSEI DNA NEGATIVE (NEGATIVE); TRICHOMONAS VAGINALIS DNA NEGATIVE (NEGATIVE)
[2023-10-02 00:47] LABS: CANDIDA GLABRATA DNA POSITIVE (NEGATIVE)
== END 2023-10-01 23:59 | disposition home or self-care (01) ==
LOC: LAB.WC 08:00
PROVIDERS: ATTEND Nurse Practitioner
DX: L29.8 Other pruritus (principal)
CPT/HCPCS: 81514